=== PATIENT | male | born 1990 | race Caucasian/White ===

== ENCOUNTER → 2020-02-16 | Outpatient (CLI) | payer OTHER | END | disposition home or self-care (01) | LOC: RAD 13:07 | PROVIDERS: ATTEND Physician Assistant Medical | DX: J20.9 Acute bronchitis, unspecified (principal) | CPT/HCPCS: 36415; 71046; 85379 ==

== ENCOUNTER 2020-02-20 12:04 | Outpatient (CLI) | payer OTHER ==
[2020-02-20] MEDS ORDERED: OMNIPAQUE 350 MG/ML, 100ML BOTTLE ONE (12:30)
== END 2020-02-20 23:59 | disposition home or self-care (01) ==
LOC: RAD 12:04
PROVIDERS: ATTEND Family Medicine
DX: J98.11 Atelectasis (principal); R06.02 Shortness of breath; R07.9 Chest pain, unspecified; K44.9 Diaphragmatic hernia without obstruction or gangrene; K76.0 Fatty (change of) liver, not elsewhere classified; N62 Hypertrophy of breast
CPT/HCPCS: 71260; Q9967